=== PATIENT | male | born 1990 | race Caucasian/White ===

== ENCOUNTER 2021-01-29 18:10 | Emergency (ER) | payer OTHER, SELFPAY ==
[2021-01-29 18:43] VITALS: BP 126/84; PULSE 75; RESP 18; TEMP 37; O2SAT 96; BMI 33.3
--- NOTE | 2021-01-29 20:00 | ED_ITS ---
HPI - Headache General: Chief Complaint: Headache Stated Complaint: [facility] SENT TO CHECK FOR SPINAL FLUID LEAK Time Seen by Provider: 01/29/21 19:50 History of Present Illness: HPI Narrative: Patient is a 31-year-old male comes to the ED with a headache. Patient says that about 2 weeks ago he started developing some neck pain and a headache. Neck pain is bilateral. The headache is located bilaterally in the church region of head. He rates his headache a 6 out of 10 describes it as throbbing. Patient says he has a history of having an ACDF on left neck were some spinal fluid leaked out causing headache and neck pain. Patient says he has not had any recent spinal surgeries to cause current neck pain and headache. Denies any neurological symptoms such as vision changes, numbness weakness or tingling to face or extremities. Associated symptoms: Deny chest pain, fever(s), nausea, rash or vomiting Review of Systems Const: Denies: fever(s), chills or fatigue Eyes: Reports: photophobia; Denies: change in vision or eye discomfort ENMT: Denies: throat pain, odynophagia, nasal discharge or nasal congestion Card: Denies: chest pain, palpitations, edema, swelling of feet/ankles, dyspnea on exertion or orthopnea Resp: Denies: dyspnea, productive cough or non-productive cough GI: Denies: abdominal pain, nausea, vomiting, diarrhea, constipation or hematochezia : Denies: flank pain, difficulty urinating, dysuria or hematuria Musc: Denies: neck pain, back pain or extremity swelling Skin/Breast: Denies: rash or new lesions Neuro: Reports: headache(s); Denies: numbness in extremities or weakness in extremities Physical Exam Const: COMMON NORMALS: no acute distress, patient oriented x3, healthy appearing and alert GENERAL APPEARANCE: cooperative and comfortable HENMT: COMMON NORMALS: normocephalic HEAD & SCALP: normocephalic MOUTH: Normal oral and palatal mucosa present THROAT: posterior oropharynx normal and uvula midline Eye: COMMON NORMALS: Equal, round and reactive pupils present and EOMs intact bilaterally PUPIL: Yes Equal, round and reactive pupils present Neck/C-Spine: COMMON NORMALS: supple GENERAL: Yes normal visual inspection Resp: COMMON NORMALS: normal respiratory effort, No retractions, No use of accessory muscles and clear to auscultation bilaterally AUSCULTATION: clear to auscultation bilaterally Cardio: COMMON NORMALS: regular rate, regular rhythm, S1 normal heart sound present, S2 normal heart sound present, No gallops present (Cardio), No clicks present (Cardio), No murmurs present (Cardio) and Peripheral pulses 2+ throughout RATE: regular rate RHYTHM: regular rhythm HEART SOUNDS: S1 normal heart sound present and S2 normal heart sound present PERIPHERAL PULSES: Peripheral pulses 2+ throughout GI: COMMON NORMALS: Normal to inspection, nondistended, normoactive bowel sounds present, Soft to palpation, non-tender and no masses PALPATION: Yes Soft to palpation : COMMON NORMALS: Yes no CVA tenderness BLADDER/KIDNEY EXAM: Yes no CVA tenderness Back/Pelvis: COMMON NORMALS: no CVA tenderness Extremity: COMMON NORMALS: normal to inspection Neuro: COMMON NORMALS: patient oriented x3, CN's II-XII intact bilaterally, moves all extremities, no focal motor deficits and no sensory deficits noted SENSORIUM/ORIENTATION: Yes alert SENSORY EXAM: Yes extremities (intact) MOTOR EXAM: 5/5 motor strength present throughout Skin: GENERAL SKIN EXAM: dry skin Course Vital Signs: Vital signs: Vital Signs Temperature 98.6 F 01/29/21 18:43 Pulse Rate 75 01/29/21 21:07 Respiratory Rate 17 01/29/21 21:07 Blood Pressure 127/78 01/29/21 21:07 Pulse Oximetry 98 01/29/21 21:07 MDM - Headache MDM Narrative: Medical decision making narrative: Patient is a 31-year-old male comes to the ED with a headache. He describes his headache started in his neck and then goes up into the church region of his head bilaterally. Denies any neurological symptoms, head trauma or injury. Neuro exam normal and the rest of exam benign. CT of head showed no acute findings. Patient was given IM Toradol, Decadron and p.o. Benadryl. Patient said his headache had improved. Discharged home and diagnosed with a headache. Told to follow-up with his PCP in 7 to 10 days for reevaluation. Return to ED precautions given. Patient stood agree with plan. Imaging Data^: CT Head: Attestation: I personally reviewed and interpreted this imaging study as follows: Radiologist's impression: [address] [place] [address] CT Scan Report Signed Patient: Shay Christiansen Unit #: [id number] : 1990 Age/Sex: 31 / M ADM Date: 01/29/21 Loc: ER Room/Bed: Attending Dr: Ordering Provider/Ordering MD: Drake Bonilla Date of Service: 01/29/21 Procedure(s): CT head wo con* [id number] Accession Number(s): [id number] Report Number: [id number] PROCEDURE INFORMATION: Exam: CT Head Without Contrast Exam date and time: 01/29/2021 7:59 PM Age: 31 years old Clinical indication: Pain; Dizziness and other: Light sensitive; Headache; Patient HX: Neck SX last year that caused csf leak TECHNIQUE: Imaging protocol: Computed tomography of the head without contrast. Radiation optimization: All CT scans at this facility use at least one of these dose optimization techniques: automated exposure control; mA and/or kV adjustment per patient size (includes targeted exams where dose is matched to clinical indication); or iterative reconstruction. COMPARISON: No relevant prior studies available. RADIATION DOSE METRICS: Total DLP (mGy-cm): 873.94 FINDINGS: Brain: Normal. No hemorrhage. Unremarkable white matter. No mass effect. Cerebral ventricles: No ventriculomegaly. Paranasal sinuses: Visualized sinuses are unremarkable. No fluid levels. Mastoid air cells: Visualized mastoid air cells are well aerated. Bones/joints: Unremarkable. No acute fracture. Soft tissues: Unremarkable. CT/CT head wo con* [id number] IMPRESSION: No acute intracranial abnormality. Radiation Dose CTDIVOL = (mGy): DLP = 873.94 (mGy-cm) Dictated By: Glenroy García Signed By: Glenroy García Signed Date/Time: 01/29/212048 DD/ 47 Discharge Plan Discharge Patient Disposition: Home Clinical Impression: Headache Qualifiers: Headache type: tension-type Headache chronicity pattern: acute headache Intractability: not intractable Qualified Code(s): G44.209 - Tension-type headache, unspecified, not intractable Condition: Stable Discharge Orders: Discharge ED (Routine); Ordered 01/29/21 Ordered By: Drake Irene Discharge Diet: Regular Discharge Activity: Resume usual activity Patient Instructions: Acute Headache (ED) Activity Restrictions/Additional Instructions: Follow-up with medical provider as directed in 7 to 10 days for reevaluation. Take [id number] Tylenol or ibuprofen for any reoccurring headaches. Return to the ER or your medical provider if condition worsens. Please read and understand discharge instructions. Thank you for choosing [facility] for your healthcare needs today. Please realize this is an emergency room and that we are providing you with a medical screening exam and this may not be complete and all inclusive of all the testing and or work up that you may need to determine your ailment or severity of your illness. It is very important that you follow up as instructed or that you return to the Emergency Department should you have concerns or if your condition changes or worsens in any way. Coding Level of Care Code ED [facility] Director for [facility] Exam Comprehensive
[2021-01-29] MEDS: ketorolac 60 mg/2 mL INJ IM (20:16)
[2021-01-29] MEDS: diphenhydrAMINE 25 mg Capsule PO (20:16)
[2021-01-29] MEDS: dexamethasone 10 mg/mL INJ IM (20:17)
[2021-01-29 21:07] VITALS: BP 127/78; PULSE 75; RESP 17; O2SAT 98
== END 2021-01-29 21:08 | disposition home or self-care (01) ==
PROVIDERS: Emergency Provider Physician Assistant
DX: G44.209 Tension-type headache, unspecified, not intractable (principal)
CPT/HCPCS: 70450; 96372; 99283; J1100; J1885

== ENCOUNTER 2021-04-08 15:23 | Emergency (ER) | payer OTHER, SELFPAY ==
[2021-04-08 16:04] VITALS: BP 115/84; PULSE 60; RESP 15; TEMP 36.8; O2SAT 98; BMI 31.8
--- NOTE | 2021-04-08 17:38 | W.ED.NAVMDI ---
HPI - Nausea/Vomiting/Diarrhea General: Chief complaint: Nausea/Vomiting/Diarrhea Stated complaint: DIARRHEA (4 DAYS), TROUBLE URINATING Time Seen by Provider: 04/08/21 17:34 History of Present Illness: HPI Narrative: Complains about diarrhea since about . Had a little nausea no vomiting. Said he had 45 bowel movements yesterday and did urinate some with those. Denies any fever has had some chills. MD elicited complaint: nausea and diarrhea Onset (ago): day(s) Description of diarrhea: watery Associated nausea: Yes Associated abdominal pain: No Location of pain: None Severity: mild Associated symtoms: Reports no associated symptoms and nausea; Denies anxiety, change in vision, chest pain or headache(s) Review of Systems Const: Denies: fever(s), chills or body aches Eyes: Denies: change in vision or blurry vision ENMT: Denies: throat pain or nasal congestion Card: Denies: chest pain or dyspnea on exertion Resp: Denies: dyspnea, productive cough or non-productive cough GI: Reports: nausea and diarrhea : Denies: difficulty urinating Musc: Denies: extremity pain Skin/Breast: Denies: rash Neuro: Denies: headache(s) Psych: Denies: anxiety or depression Francesco/Lymph: Denies: easy bruising Physical Exam Const: COMMON NORMALS: no acute distress, average body habitus and patient oriented x3 HENMT: COMMON NORMALS: normocephalic HEAD & SCALP: normal to inspection and normocephalic FACE & SINUS: normal facial exam Eye: COMMON NORMALS: conjunctivae normal GENERAL EYE: appearance normal, both eyes and all related structures CONJUNCTIVA: Yes conjunctivae normal Neck/C-Spine: COMMON NORMALS: no JVD Chest: COMMONS NORMALS: normal inspection of the chest Resp: COMMON NORMALS: normal respiratory effort and clear to auscultation bilaterally AUSCULTATION: clear to auscultation bilaterally Cardio: COMMON NORMALS: no JVD, regular rate and regular rhythm RATE: regular rate RHYTHM: regular rhythm GI: COMMON NORMALS: Normal to inspection, nondistended, normoactive bowel sounds present Extremity: COMMON NORMALS: normal to inspection and full ROM Neuro: COMMON NORMALS: patient oriented x3 Course Vital Signs: Vital signs: Vital Signs Temperature 98.2 F 04/08/21 20:10 Pulse Rate 71 04/08/21 20:10 Respiratory Rate 16 04/08/21 20:10 Blood Pressure 121/60 04/08/21 20:10 Pulse Oximetry 97 04/08/21 20:10 MDM - Nausea/Vomiting/Diarrhea MDM Narrative: Medical decision making narrative: Gastroenteritis. Drink plenty fluids follow-up family medical provider can take [id number]-ngz-degupjh Imodium. Lab Data: Labs: Lab Results 04/08/21 04/08/21 04/08/21 Range/Units 18:20 18:20 19:10 WBC 5.3 (4.0-10.0) 10^3/ uL RBC 5.22 (4.1-5.3) 10^6/u L Hgb 15.5 (11.7-16.6) g/dL Hct 46.0 (42.0-52.0) % MCV 88.1 (80-94) fl MCH 29.7 (28.0-34.0) pg MCHC 33.7 (30.0-36.0) g/dL RDW 12.8 (12.1-15.1) % Plt Count 226 (130-400) 10^3/c mm MPV 10.3 (7.4-10.4) fL Neut % (Auto) 42.7 % Lymph % (Auto) 37.7 % Victoria % (Auto) 12.8 % Eos % (Auto) 5.8 % Baso % (Auto) 0.8 % Neut # (Auto) 2.27 (1.8-7.7) 10^3/u L Lymph # (Auto) 2.0 (0.8-4.8) 10^3/u L Victoria # (Auto) 0.7 (0.2-0.9) 10^3/u L Eos # (Auto) 0.3 (0.0-0.8) 10^3/u L Baso # (Auto) 0.0 (0.0-0.1) 10^3/u L Nucleated RBC % (a uto) 0 % Nucleated RBCs # 0.0 /100WBC Sodium 140 (136-145) mmol/L Potassium 4.0 (3.5-5.1) mmol/L Chloride 103 (98-107) mmol/L Carbon Dioxide 25 (22-29) mmol/L Anion Gap 16.0 (5-19) BUN 6 (6-20) mg/dL Creatinine 0.9 (0.7-1.2) mg/dL GFR Calculation 98.4 (90-130) mL/min Glucose 81 (65-115) mg/dL Calculated Osmolal ity 287 (285-295) mOsm/k g Calcium 9.0 (8.5-10.5) mg/dL Urine Color Yellow (Yellow) Urine Appearance Clear (CLEAR) Urine pH 6.5 (5-7) Ur Specific Gravit y 1.015 (1.005-1.030) Urine Protein Neg (Negative) Urine Glucose (UA) Norm (Normal) Urine Ketones 1+ H (Negative) Urine Blood Neg (Negative) Urine Nitrate Negative (Negative) Urine Bilirubin Neg (Negative) Urine Urobilinogen Norm (Negative) mg/dL Ur Leukocyte Lindsay ase Negative (Negative) Discharge Plan Discharge Patient Disposition: Home Clinical Impression: Diarrhea Qualifiers: Diarrhea type: unspecified type Qualified Code(s): R19.7 - Diarrhea, unspecified Condition: Stable Prescriptions: No Action No Known Home Medications RF: 0 Discharge Orders: Discharge ED (Routine); Ordered 04/08/21 Ordered By: Alfred Landeros Discharge Diet: Advance as tolerated Discharge Activity: Resume usual activity Patient Instructions: Acute Diarrhea (ED) Activity Restrictions/Additional Instructions: Can take [id number]-ahublqb Imodium. Advance diet slowly. Follow-up with family medical provider if no significant provement. Make sure you drink plenty of fluids. Coding Level of Care Code ED [facility] Guide for [facility] Fwd Exam Comprehensive
[2021-04-08 18:36] LABS: Basophils % 0.8 %; Eosinophils # 0.3 10^3/uL (0.0-0.8); Eosinophils % 5.8 %; Hemoglobin 15.5 g/dL (11.7-16.6); Lymphocytes % 37.7 %; Mean Corpuscular HGB Conc 33.7 g/dL (30.0-36.0); Mean Corpuscular Hemoglobin 29.7 pg (28.0-34.0); Mean Corpuscular Volume 88.1 fl (80-94); Mean Platelet Volume 10.3 fL (7.4-10.4); Monocytes # 0.7 10^3/uL (0.2-0.9); Monocytes % 12.8 %; Neutrophils # 2.27 10^3/uL (1.8-7.7); Neutrophils % 42.7 %; Nucleated Red Blood Cells % 0 %; Platelet Count 226 10^3/cmm (130-400); Red Blood Count 5.22 10^6/uL (4.1-5.3); Red Cell Distribution Width 12.8 % (12.1-15.1); White Blood Count 5.3 10^3/uL (4.0-10.0)
[2021-04-08 18:50] LABS: Blood Urea Nitrogen 6 mg/dL (6-20); Carbon Dioxide 25 mmol/L (22-29); Chloride 103 mmol/L (98-107); Glomerular Filtration Rate 98.4 mL/min (90-130); Glucose 81 mg/dL (65-115); Osmolality Calculated 287 mOsm/kg (285-295); Sodium 140 mmol/L (136-145)
[2021-04-08] MEDS: diphenoxylate/atropine Tablet 1 TAB PO (19:13)
[2021-04-08] MEDS: sodium chloride 0.9% 1,000 ML 999 ML IV (19:14)
[2021-04-08 19:18] VITALS: BP 130/86; PULSE 67; RESP 16; TEMP 37.1; O2SAT 99
[2021-04-08 19:32] LABS: Add Urine Microscopic? NO; Charge for UA Resulting for Rev
[2021-04-08 19:34] LABS: Bilirubin Urine Neg (Negative); Blood Urine Neg (Negative); Glucose Urine UA Norm (Normal); Ketones Urine 1+ (Negative); Leukocyte Esterase Urine Negative (Negative); Nitrate Urine Negative (Negative); Protein Urine Neg (Negative); Specific Gravity, Urine 1.015 (1.005-1.030); Urine Appearance Clear (CLEAR); Urine Color Yellow (Yellow); Urobilinogen Urine Norm (Negative); pH Urine 6.5 (5-7)
[2021-04-08 20:10] VITALS: BP 121/60; PULSE 71; RESP 16; TEMP 36.8; O2SAT 97
== END 2021-04-08 20:13 | disposition home or self-care (01) ==
PROVIDERS: Emergency Provider Nurse Practitioner Family
DX: R19.7 Diarrhea, unspecified (principal)
CPT/HCPCS: 80048; 81003; 85025; 96360; 99283; J7030

== ENCOUNTER 2021-04-23 13:01 | Outpatient (CLI) | payer OTHER, SELFPAY ==
--- NOTE | 2021-04-23 13:10 | MR_ITS ---
WS: [id number] MRI LUMBAR SPINE NONCONTRAST HISTORY: LUMBAR RADICULOPATHY COMPARISON: None available. TECHNIQUE: Sagittal and axial multisequence imaging is submitted. Cervical fusion hardware is noted within the cervical spine. Mild straightening of the normal lumbar lordosis. No marrow edema or fracture. Mild disc desiccation and narrowing at L1-2. Conus terminates normally at L1-2 disc level. L1-L2: Slightly lobulated small LEFT paracentral disc protrusion contacts the LEFT lateral thecal sac with mild deformity. No significant stenosis. L2-L3: Normal. L3-L4: Mild annular disc bulging. No stenosis. Small amount of fluid in the facet joints. L4-L5: Very slight annular disc bulging with no protrusions. Small amount of fluid in the facet joint s. 5 mm LEFT facet joint cyst posterior to the facet joint. L5-S1: Normal. Paravertebral soft tissues are normal. MR/MR lumbar spine wo con* [id number] IMPRESSION: 1. Small lobulated LEFT paracentral disc protrusion at L1-2 with mild contact on the thecal sac. No significant stenosis. 2. Mild facet joint synovitis at L3-4 and L4-5.
== END 2021-04-23 13:02 | disposition home or self-care (01) ==
PROVIDERS: PCP Family Medicine; Visit Provider Family Medicine
DX: M54.16 Radiculopathy, lumbar region (principal); M51.26 Other intervertebral disc displacement, lumbar region; M65.88 Other synovitis and tenosynovitis, other site
CPT/HCPCS: 72148

== ENCOUNTER → 2021-08-08 12:21 | Outpatient (BNVA) | payer OTHER, SELFPAY | PROVIDERS: PCP Family Medicine; Visit Provider Nurse Practitioner Family | DX: J06.9 Acute upper respiratory infection, unspecified (principal) | CPT/HCPCS: 87635; 87801 ==

== ENCOUNTER 2024-09-07 07:18 | Outpatient (CLI) | payer OTHER, SELFPAY ==
--- NOTE | 2024-09-07 07:21 | MR_ITS ---
WS: [id number] MRI CERVICAL SPINE NONCONTRAST TECHNIQUE: Sagittal T1, T2 and STIR imaging. Axial T2, gradient, and fiesta imaging. CLINICAL INFORMATION: CERVICALGIA RADICULOPATHY COMPARISON: None. FINDINGS: Straightening of the normal cervical lordosis. Prior postoperative changes ACDF C5-C7. Chronic myelomalacia. C2-C3: Normal. C3-C4: Mild disc bulging with mild central canal stenosis. Slight contact of the RIGHT ventral cervical cord. Mild facet arthropathy. Mild RIGHT foraminal narrowing. C4-C5: Disc osteophyte complex with slight indentation of the cervical cord. Mild to moderate central canal stenosis. Moderate facet arthropathy. Moderate RIGHT greater than LEFT bony foraminal narrowing. C5-C6: Postoperative ACDF. Spinal canal is patent. Mild LEFT foraminal narrowing.. Mild facet arthropathy. C6-C7: Postoperative changes ACDF. Moderate LEFT bony foraminal narrowing. Spinal canal is patent. C7-T1: Moderate LEFT and mild RIGHT bony foraminal narrowing. Spinal canal is patent. Visualized brain stem structures: Normal. Prevertebral soft tissues: Normal. MR/MR cervical spin wo con* [id number] IMPRESSION: 1. Straightening of the normal cervical lordosis. Postoperative changes ACDF C 5-C7. 2. Mild central canal stenosis C3-C4 and mild to moderate central canal stenos is C4-5 with slight indentation cervical cord. 3. Moderate RIGHT C4-5, moderate LEFT C6-7, and moderate LEFT C7-T1 bony zeeshan inal narrowing
== END 2024-09-07 07:19 | disposition home or self-care (01) ==
PROVIDERS: PCP Family Medicine; Visit Provider Family Medicine
DX: Z01.89 Encounter for other specified special examinations (principal); Z98.890 Other specified postprocedural states; G95.89 Other specified diseases of spinal cord; M48.02 Spinal stenosis, cervical region; M50.31 Other cervical disc degeneration, high cervical region; M47.892 Other spondylosis, cervical region; M25.78 Osteophyte, vertebrae
CPT/HCPCS: 72141